=== PATIENT | female | born 1990 | race Asian ===

== ENCOUNTER 2020-03-23 10:37 | Emergency (ER) | payer OTHER ==
--- NOTE | 2020-03-23 11:58 | ED Physician Documentation ---
PD HPI SKIN - Stated complaint Stated Complaint: RASH - Chief complaint Chief Complaint: Allergic Rx - History obtained from History obtained from: Patient - Additional information Additional information: Pt c/o an outbreak of pustules after prolonged bandaging of a wound on her arm. She states the pustules are spreading. No fevers or chills. No intraoral lesions. Review of Systems Ten Systems: 10 systems reviewed and negative Constitutional: reports: Reviewed and negative Eyes: reports: Reviewed and negative Ears: reports: Reviewed and negative Nose: reports: Reviewed and negative Throat: reports: Reviewed and negative Cardiac: reports: Reviewed and negative Respiratory: reports: Reviewed and negative GI: reports: Reviewed and negative : reports: Reviewed and negative Skin: reports: Rash, Lesions Musculoskeletal: reports: Reviewed and negative Neurologic: reports: Reviewed and negative Psychiatric: reports: Reviewed and negative Endocrine: reports: Reviewed and negative Immunocompromised: reports: Reviewed and negative PD PAST MEDICAL HISTORY - Past Medical History Past Medical History: No Cardiovascular: None Respiratory: None Neuro: None Endocrine/Autoimmune: None GI: None [employer] PS[employer]CH[employer]: None : None HEENT: None Psych: None Musculoskeletal: None Derm: None Other Past Medical History: shingles outbreak in Jun 2019 - Past Surgical History Past Surgical History: No - Present Medications Home Medications: Ambulatory Orders Medication Instructions Recorded Confirmed Doxycycline Hyclate 100 mg PO BID #10 capsule 03/23/20 - Allergies Allergies/Adverse Reactions: Allergies Allergy/AdvReac Type Severity Reaction Status Date / Time No Known Drug Allergies Allergy Verified 03/23/20 10:42 - Social History Does the pt smoke?: No Smoking Status: Never smoker Does the pt drink ETOH?: Yes Does the pt have substance abuse?: No - Immunizations Immunizations are current?: Yes - POLST Patient has POLST: No PD ED PE NORMAL - Vitals Vital signs reviewed: Yes - General General: Alert and oriented X 3, No acute distress - HEENT HEENT: Atraumatic, PERRL, EOMI, Moist mucous membranes - Neck Neck: Supple, no meningeal sign - Cardiac Cardiac: Strong equal pulses - Respiratory Respiratory: No respiratory distress - Derm Derm: Normal color, Warm and dry, Other (pustular rash noted on R forearm. Healing wound noted in same area. No induration, fluctuance, or drainage. Sca ttered pustules noted on the rest of the pt's arm.) - Extremities Extremities: No deformity, No edema - Neuro Neuro: Alert and oriented X 3, Other (grossly nl) - Psych Psych: Normal mood, Normal affect Results - Vitals Vitals: Vital Signs - 24 hr 03/23/20 03/23/20 10:42 12:10 Temperature 36.8 C 36.8 C Heart Rate 77 62 Respiratory 16 16 Rate Blood Pressure 124/78 122/72 O2 Saturation 98 100 Oxygen O2 Source Room air PD MEDICAL DECISION MAKING - ED course Complexity details: considered differential, d/w patient ED course: I d/w pt that she has probably developed a staph-related pustular outbreak, which should be easily treatable with a short course of doxycycline. We have discussed that pt may bring further concerns to her PCP. Departure - Departure Disposition: 01 Home, Self Care Clinical Impression: Folliculitis Condition: Stable Instructions: ED Folliculitis Prescriptions: Doxycycline Hyclate 100 mg PO BID #10 capsule Comments: Your rash does not look like any of the concerning, emergent rashes. Most likely, given the appearance and the history of occlusive dressing and ointment, you have developed a folliculitis, or infection of the pores in her follicles around the area. Sometimes this can spread locally around your skin. Please take the medication prescribed to help clear this up. If you are not doing better after the next 5 days, please follow-up with your primary care physician for further evaluation. Discharge Date/Time: 03/23/20 12:10
[2020-03-23 12:11] VITALS: BP 122/72
== END 2020-03-23 12:10 | disposition home or self-care (01) ==
LOC: ED 10:37
DX: L73.9 Follicular disorder, unspecified (principal)
CPT/HCPCS: 99282; 99284